=== PATIENT | female | born 2000 | race African-American/Black ===

== ENCOUNTER 2018-08-04 22:23 | Emergency (ER) | payer SELFPAY ==
--- NOTE | 2018-08-04 23:21 | RAD ---
CHEST TWO VIEWS: 08/04/18 HISTORY: Hemoptysis. FINDINGS: No comparison. The cardiac silhouette is magnified by projection. Pulmonary vasculature is unremarkable. Mediastinum is midline. No confluent air space consolidation, pneumothorax or pleural fluid are apparent. IMPRESSION: No active cardiopulmonary abnormalities are demonstrated. POS: [facility]
[2018-08-05] MEDS ORDERED: Ibuprofen 200 MG TAB ONE (00:05)
[2018-08-05] MEDS ORDERED: predniSONE 20 MG TAB ONE (00:05)
== END 2018-08-05 01:26 | disposition home or self-care (01) ==
LOC: ERS 22:23
DX: J06.9 Acute upper respiratory infection, unspecified (principal); R06.2 Wheezing
CPT/HCPCS: 71046; 87804; 94640; J7620